=== PATIENT | female | born 1945 | race Caucasian/White ===

== ENCOUNTER → 2017-12-24 | Outpatient (CLI) | payer MEDICARE ==
--- NOTE | 2017-12-24 11:34 | Diagnostic Imaging Report ---
TECHNIQUE: Magnetic resonance imaging of the LEFT SHOULDER was performed WITHOUT injected contrast. HISTORY: Lesion, pain, can't reach back COMPARISON: None available. FINDINGS: MUSCLES AND TENDONS: Rotator Cuff: Tendons: Supraspinatus and Infraspinatus: Complex high-grade partial tearing of the anterior supraspinatus tendon, likely extending to both the bursal and articular surface, without tendon retraction. Full-thickness perforation(s) is/are likely. Teres Minor: Intact Subscapularis: Mild thickening and increased intrasubstance signal of the superior fibers, without a discrete tear. Muscles: No focal muscle atrophy. Biceps Tendon: The long head of the biceps tendon is intact and within the intertubercular groove. GLENOHUMERAL JOINT: Glenoid Labrum: Attenuation and complex tearing of the posterosuperior, posterior, posteroinferior and inferior labrum. Articular Cartilage: Diffuse low-grade erosion. Joint Fluid: No effusion. ACROMIOCLAVICULAR JOINT: Severe hypertrophic degenerative changes of the acromioclavicular joint. Synovitis and trace effusion. BONE: The acromion is unremarkable. No focal or infiltrative bone marrow replacing abnormality. No acute fracture. SOFT TISSUES: Trace fluid in the subacromial/subdeltoid bursa, in keeping with full-thickness rotator cuff perforation. IMPRESSION: 1. High-grade tearing of the anterior supraspinatus tendon, without a complete tear or tendon retraction. 2. Mild subscapularis tendinosis. 3. Severe acromioclavicular and mild glenohumeral degenerative changes, including mild degenerative tearing of the labrum. Signed by: Dr. Sheng Sharp D.O., M.M.M. on 12/24/2017 11:31 AM
== END ==
LOC: MRI 07:39
PROVIDERS: ATTEND Family Medicine
DX: M75.82 Other shoulder lesions, left shoulder (principal)